=== PATIENT | female | born 1990 | race Caucasian/White ===

== ENCOUNTER 2019-08-07 21:27 | Emergency (ER) | payer OTHER, SELFPAY ==
--- NOTE | ~2019-08-07 | CT_ITS ---
EXAMINATION: CT abdomen pelvis w con DATE: 08/08/2019 00:34 INDICATION: Low abdominal pain. Nausea. TECHNIQUE: Computed tomography (CT) of the abdomen and pelvis was performed with 100 mL Omnipaque 350 intravenous contrast. Automated exposure control and iterative reconstruction technique were employe d. The dose-length product was 546.05 mGy-cm. COMPARISON: None. FINDINGS: The visualized portions of the lung bases are clear without pneumonia or pleural effusion. The heart size is normal. No pericardial effusion. The liver, gallbladder, spleen, pancreas, adrenal glands, and kidneys are normal. There are no dilated loops of bowel. The appendix is normal. There ar e no pathologically enlarged lymph nodes. There is no free intraperitoneal fluid. 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 IMPRESSION: 1. No etiology for the patient's symptoms. Reviewed, dictated and finalized at location A.
[2019-08-07 21:29] VITALS: BP 148/69; PULSE 100; RESP 16; TEMP 36.4; O2SAT 100
[2019-08-07 21:58] LABS: Basophils Absolute Auto 0.1 K/mm3 (0.0-0.1); Basophils Percent Auto 0.9 % (0.2-1.2); Eosinophils Absolute Auto 0.5 K/mm3 (0-0.3); Eosinophils Percent Auto 3.3 % (0-4.4); Hematocrit 39.2 % (37.0-47.0); Immature Granulocyte Absolute 0.04 K/mm3 (0.00-0.031); Immature Granulocyte Percent A 0.3 % (0-0.5); Lymphocytes Absolute Auto 4.46 K/mm3 (0.9-3.2); Lymphocytes Percent Auto 30.7 % (18.3-44.2); Mean Corpuscular HGB Conc 33.2 g/dl (32-36); Mean Corpuscular Hemoglobin 28.8 pg (26-34); Mean Corpuscular Volume 86.7 fl (80-100); Mean Platelet Volume 13.4 fl (7.4-10.4); Monocytes Absolute Auto 1.1 K/mm3 (0.1-0.6); Monocytes Percent Auto 7.9 % (2.6-8.5); Neutrophils Absolute Auto 8.3 K/mm3 (1.3-6.7); Neutrophils Percent Auto 56.9 % (45.5-73.1); Platelet Count Result 274 k/mm3 (150-375); Red Blood Count 4.52 M/mm3 (4.2-5.4); Red Cell Distribution Width 13.1 % (11.5-14.5); White Blood Count 14.5 K/mm3 (4.5-10.0)
[2019-08-07 22:02] LABS: Add Urine Microscopic? YES; Appearance Urine Clear (Clear); Bacteria Urine Trace /hpf; Bilirubin Urine Negative (Negative); Blood Urine 2+ (Negative); Color Urine Yellow (Yellow); Glucose Urine UA Negative (Negative); Ketones Urine Trace mg/dL (Negative); Leukocyte Esterase Ur Negative LEU/UL (Negative); Mucus Urine Rare /lpf; Nitrate Urine Negative (Negative); Protein Urine Negative (Negative); Specific Grav Ur 1.019 (1.001-1.035); Squamous Epithelial Cell Urine Many /hpf (Few); Urobilinogen Urine Negative mg/dL (<2.0); WBC Urine 0-3 /hpf
[2019-08-07 22:09] LABS: Platelet Estimate Adequate (Adequate)
[2019-08-07 22:10] LABS: Hypochromasia 1+ (NORMAL); Stomatocytes 1+ (NORMAL)
[2019-08-07 22:24] LABS: Alanine Aminotransferase 15 U/L (4-35); Albumin Level 4.8 g/dL (3.5-5.1); Alkaline Phosphatase 81 U/L (38-126); Aspartate Amino Transferase 21 U/L (14-36); Bilirubin,Total 0.4 mg/dL (0.2-1.3); Blood Urea Nitrogen 14 mg/dL (7-17); Calcium 9.4 mg/dL (8.4-10.2); Carbon Dioxide 23 mmol/L (22-30); Chloride 104 mmol/L (98-107); Estimated Glomerular Filt Rate > 60; Glucose 123 mg/dL (65-105); Lipase 90 U/L (23-300); Potassium 3.7 mmol/L (3.4-5.0); Sodium 137 mmol/L (137-145)
[2019-08-07 23:09] VITALS: BP 119/72; PULSE 73; RESP 18; TEMP 36.8; O2SAT 99
--- NOTE | 2019-08-08 00:06 | ED.ABDPAIN ---
HPI - Abdominal Pain General Chief Complaint: Abdominal Pain Stated Complaint: abd pain History of Present Illness HPI narrative: Patient presents with 2 weeks of lower abdominal?pelvic pain. It has been continual, since her last, which was unusually painful. She denies fever chills sweats, diarrhea. She has had vomiting and vomited last today. She has a history of and tubal ligation. She ranks the pain at 9 out of 10. She denies risk of sexually transmitted disease or vaginal discharge. MD elicited complaint: abdominal pain Pertinent past history: none Onset (ago): week(s) Pain Consistency: constant Location: pelvis Severity: severe Exacerbating factors: nothing Relieving factors: nothing Related Data Home Medications Medication Instructions Recorded Confirmed No Home Medications 08/07/19 08/07/19 Allergies Allergy/AdvReac Type Severity Reaction Status Date / Time Sulfa (Sulfonamide Allergy Mild rash Verified 08/07/19 21:35 Antibiotics) Review of Systems Review of Systems: Narrative: CONSTITUTIONAL: Denies fever, chills, or sweats. EYES: Denies visual changes, redness, or discharge. ENT: Denies rhinorrhea, congestion, sore throat, or otalgia. CARDIOVASCULAR: Denies chest pain, palpitations, or edema. RESPIRATORY: Denies cough or dyspnea. GASTROINTESTINAL: Denies nausea, or diarrhea. GENITOURINARY: Denies dysuria or hematuria. SKIN: Denies rash or itching. MUSCULOSKELETAL: Denies back pain, joint pain, or myalgia. NEUROLOGIC: Denies headache, numbness, or weakness. PSYCHIATRIC: Denies anxiety or depression. PMFSH Past Medical History Medical History Pelvic pain Surgical History Surgical History History of History of tubal ligation Social History Social History (Updated 08/08/19 @ 00:10 by Mahsa Garcia MD) Smoking status: Never smoker Alcohol intake: never Substance use: never Exam Narrative: Exam Narrative: GENERAL: Well-appearing, well-nourished, and in no acute distress. Red hair HEAD: Normocephalic, atraumatic. EYES: PERRLA and EOMI. ENT: Nares clear, no rhinorrhea or epistaxis. Mucous membranes moist. NECK: Supple. CHEST: Clear to auscultation. No respiratory distress. HEART: Regular rate and rhythm. No murmur heard. Normal peripheral pulses. ABDOMEN: Soft, mildly tender nondistended, normal active bowel sounds. EXTREMITIES: Normal range of motion. No edema. SKIN: Warm, dry, no rash. NEURO: No focal deficits. Alert and oriented x3. PSYCH: Normal mood and affect. Course Reevaluation(s) Reevaluation #1: I went in to tell her the results of her CAT scan was just some bilateral ovarian cysts, and that the best test for cysts is an ultrasound, which we do not have at night. [facility] [employer] issues, but has not been for years since she has a tubal ligation. I recommended she have a follow-up and get an ultrasound. Then she tells me that she has been bleeding more more heavily. Date: 08/08/19 Time: 02:27 Vital Signs Vital signs: Vital Signs Temperature 97.6 F 08/07/19 21:29 Pulse Rate 100 08/07/19 21:29 Respiratory Rate 16 08/07/19 21:29 Blood Pressure 148/69 H 08/07/19 21:29 Pulse Oximetry 100 08/07/19 21:29 Temperature 98.2 F 08/07/19 23:09 Pulse Rate 73 08/07/19 23:09 Respiratory Rate 18 08/07/19 23:09 Blood Pressure 119/72 08/07/19 23:09 Pulse Oximetry 99 08/07/19 23:09 MDM - Abdominal Pain Differential Diagnosis Differential diagnosis: Likely abdominal pain, endometriosis and other (PID) Medical Records Attestation: I reviewed the patient's medical records. Lab Data Attestation: I reviewed the patient's lab results. Result diagrams: 08/07/19 21:48 08/07/19 22:06 Labs: Lab Results 08/07/19 08/07/19 08/07/19 Range/Units 21:48 21:48 22:06 WBC 14.5
[2019-08-08] MEDS: SODIUM CHLORIDE 0.9% IV 1,000 ML 999 ML IV CONT (00:55)
[2019-08-08] MEDS: ONDANSETRON INJ 4 MG/2 ML VIAL IV PUSH (00:55)
[2019-08-08] MEDS: MORPHINE SULFATE 4 MG/ML INJ IV PUSH (00:55)
[2019-08-08 02:45] VITALS: BP 113/68; PULSE 60; RESP 18; O2SAT 100
== END 2019-08-08 02:47 | disposition home or self-care (01) ==
PROVIDERS: Emergency Provider Emergency Medicine; PCP Physician Assistant Medical
DX: N83.202 Unspecified ovarian cyst, left side (principal); N83.201 Unspecified ovarian cyst, right side
CPT/HCPCS: 36415; 74177; 80053; 81001; 81025; 83690; 85025; 85055; 96365; 96375; 99284; J2270; J2405; J2543; J7030; Q9967

== ENCOUNTER 2020-04-04 13:09 | Emergency (ER) | payer OTHER, SELFPAY ==
--- NOTE | ~2020-04-04 | XR_ITS ---
EXAMINATION: XR ankle RT 2V INDICATION: Right ankle pain, initial encounter TECHNIQUE: Two views of the right ankle are obtained. COMPARISON: None available FINDINGS: There is an acute, traumatic, closed oblique fracture of the distal fibula which extends to the level of the tibial plafond. No additional acute osseous abnormality is identified. Ankle soft t issue swelling is present. IMPRESSION: 1. Oblique fracture of the distal fibula extending to the level of the tibial plafond. Reviewed, dictated and finalized at location A. [facility] IMPRESSION: 1. Oblique fracture of the distal fibula extending to the level of the tibial p reji.
[2020-04-04 13:15] VITALS: BP 128/82; PULSE 96; RESP 20; TEMP 36.2; O2SAT 99
--- NOTE | 2020-04-04 15:38 | ED.GENADULT ---
HPI - General Adult General Chief complaint: Extremity Injury, Lower Stated complaint: r ankle pain Time Seen by Provider: 04/04/20 13:19 Source: patient Mode of arrival: ambulatory Limitations: no limitations History of Present Illness HPI narrative: Patient is a 30-year-old female who presents to emergency department with bruising swelling and tenderness of the right ankle joint patient injured the ankle ambulating 1 week ago when she rolled it awkwardly patient has been walking on the extremity with pain over the course of the last week patient denies other injuries she has not taken anything for her symptoms and today presents with continued pain Related Data Allergies Allergy/AdvReac Type Severity Reaction Status Date / Time Sulfa (Sulfonamide Allergy Mild rash Verified 04/04/20 13:17 Antibiotics) Review of Systems Review of Systems: All systems reviewed & are unremarkable except as noted in HPI and below PMFSH Past Medical History Medical History (Updated 04/04/20 @ 15:43 by Juan Millan PA-C) Pelvic pain Surgical History Surgical History History of History of tubal ligation Social History Social History Smoking status: Never smoker Alcohol intake: never Substance use: never Gender identity (if verbalized by the patient): Female Exam Narrative: Exam Narrative: GENERAL: Well-appearing, well-nourished, and in no acute distress. HEAD: Normocephalic, atraumatic. EYES: PERRLA and EOMI. ENT: Nares clear, no rhinorrhea or epistaxis. Mucous membranes moist. EXTREMITIES: Bruising swelling and tenderness along the lateral aspect right ankle joint SKIN: Warm, dry, no rash. NEURO: No focal deficits. Alert and oriented x3. Neurovascularly intact PSYCH: Normal mood and affect. Course Course Emergency Course: Patient found to have ankle fracture placed in OCL splint will be following with orthopedic surgery Vital Signs Vital signs: Vital Signs Temperature 97.2 F L 04/04/20 13:15 Pulse Rate 96 04/04/20 13:15 Respiratory Rate 20 04/04/20 13:15 Blood Pressure 128/82 04/04/20 13:15 Pulse Oximetry 99 04/04/20 13:15 Temperature 97.2 F L 04/04/20 13:15 Pulse Rate 96 04/04/20 13:15 Respiratory Rate 20 04/04/20 13:15 Blood Pressure 128/82 04/04/20 13:15 Pulse Oximetry 99 04/04/20 13:15 Procedures Orthopedic Splinting/Casting Injury #1: Splinting/Casting Date: 04/04/20 Splinting/Casting Time: 15:42 Side: right Lower Extremity Injury Location: ankle Splint: customized in ED OCL: short leg Pre-Procedure Neuro Vascular Exam: normal Post-Procedure Neuro Vascular Exam: normal Other Orthopedic Equipment: crutches Medical Decision Making MDM Narrative Medical decision making narrative: Patients injury or pain is consistent with musculoskeletal etiology. No signs of neurological or vascular compromise on exam. Compartments and tisues are soft without signs of compartment syndrome. Pain is felt appropriate for further evaluation on an outpatient basis. Placed in OCL will follow with orthopedic surgery Vital Signs Vital Signs: Vital Signs Temperature 97.2 F L 04/04/20 13:15 Pulse Rate 96 04/04/20 13:15 Respiratory Rate 04/04/20 13:15 Blood Pressure 128/82 04/04/20 13:15 Pulse Oximetry 99 04/04/20 13:15 Temperature 97.2 F L 04/04/20 13:15 Pulse Rate 96 04/04/20 13:15 Respiratory Rate 04/04/20 13:15 Blood Pressure 128/82 04/04/20 13:15 Pulse Oximetry 99 04/04/20 13:15 Imaging Data Radiologist's impression: ITS Impressions Ankle X-Ray 04/04/20 13:39 IMPRESSION: 1. Oblique fracture of the distal fibula extending to the level of the tibial plafond. Discharge Plan Discharge Clinical Impression: Ankle fracture, right Patient
== END 2020-04-04 16:04 | disposition home or self-care (01) ==
PROVIDERS: Emergency Provider Emergency Medicine
DX: S82.831A Other fracture of upper and lower end of right fibula, initial encounter for closed fracture (principal); X50.9XXA Other and unspecified overexertion or strenuous movements or postures, initial encounter
CPT/HCPCS: 29515; 73600; 99284

== ENCOUNTER 2020-07-05 04:15 | Emergency (ER) | payer OTHER, SELFPAY ==
--- NOTE | ~2020-07-05 | CT_ITS ---
EXAMINATION: CT facial & cervical spine wo DATE: 07/05/2020 05:01 INDICATION: Head injury. TECHNIQUE: Computed tomography (CT) of the maxillofacial region and cervical spine was performed with out intravenous contrast. Automated exposure control and iterative reconstruction technique were empl oyed. The dose-length product was 378.75 mGy-cm. COMPARISON: None FINDINGS: MAXILLOFACIAL CT: There is left frontal scalp soft tissue swelling. There is leftward deviation the nasal septum. No fr acture. There is mild mucosal thickening in the paranasal sinuses. CERVICAL SPINE CT: There is mild kyphosis of cervical spine. There is 5 degrees levocurvature of cervical spine. Vertebr al body heights are normal. There is mildly decreased disc height at C5-C6. The following disc levels are specifically discussed: C2-C3: There is mild left uncovertebral joint osteoarthritis. There is mild left facet joint osteoart hritis. There is mild left neural foraminal stenosis. There is no central canal stenosis. C3-C4: There is no uncovertebral joint osteoarthritis. There is no facet joint osteoarthritis. There is no neural foraminal stenosis. There is no central canal stenosis. C4-C5: There is no uncovertebral joint osteoarthritis. There is no facet joint osteoarthritis. There is no neural foraminal stenosis. There is mild central canal stenosis. C5-C6: There is mild bilateral uncovertebral joint osteoarthritis. There is no facet joint osteoarthr itis. There is mild left neural foraminal stenosis. There is mild central canal stenosis. C6-C7: There is no uncovertebral joint osteoarthritis. There is no facet joint osteoarthritis. There is no neural foraminal stenosis. There is no central canal stenosis. C7-T1: There is no uncovertebral joint osteoarthritis. There is mild right facet joint osteoarthritis . There is no neural foraminal stenosis. There is no central canal stenosis. IMPRESSION: 1. No fracture. 2. Mild cervical spondylosis. Reviewed, dictated and finalized at location A.
--- NOTE | ~2020-07-05 | CT_ITS ---
EXAMINATION: CT brain wo con DATE: 07/05/2020 05:01 INDICATION: Head injury. TECHNIQUE: Computed tomography (CT) of the head was performed without intravenous contrast. The mA wa s adjusted according to patient size. Iterative reconstruction technique was employed. The dose-lengt h product was 605.33 mGy-cm. COMPARISON: None FINDINGS: There is no intracranial hemorrhage, acute infarction, or abnormal intracranial mass lesion . The ventricles are normal in size. The paranasal sinuses are clear. The mastoid air cells are jomar l. There is left frontal scalp soft tissue swelling. IMPRESSION: 1. Normal brain. Reviewed, dictated and finalized at location A. IMPRESSION: 1. Normal brain.
--- NOTE | ~2020-07-05 | XR_ITS ---
EXAMINATION: XR hand LT min 3V DATE: 07/05/2020 05:02 INDICATION: Left hand pain. Fall. TECHNIQUE: 3 views of left hand were obtained. COMPARISON: None. FINDINGS: Bone alignment is normal. No fracture. Joint spaces are well maintained. IMPRESSION: 1. Normal left hand. Reviewed, dictated and finalized at location A. IMPRESSION: 1. Normal left hand.
[2020-07-05 04:17] VITALS: BP 134/65; PULSE 117; RESP 18; TEMP 36.1; O2SAT 100
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
[2020-07-05 05:35] VITALS: BP 129/80; PULSE 99; RESP 18; O2SAT 99
== END 2020-07-05 05:36 | disposition home or self-care (01) ==
PROVIDERS: Emergency Provider Emergency Medicine
DX: S00.83XA Contusion of other part of head, initial encounter (principal); S60.222A Contusion of left hand, initial encounter; F17.210 Nicotine dependence, cigarettes, uncomplicated; Y08.89XA Assault by other specified means, initial encounter
CPT/HCPCS: 70450; 70486; 72125; 73130; 99284